=== PATIENT | male | born 1965 | race Caucasian/White ===

== ENCOUNTER 2022-11-11 22:16 | Emergency (ER) | payer OTHER, SELFPAY ==
[2022-11-11 22:17] VITALS: BP 155/91; PULSE 119; RESP 21; TEMP 37; O2SAT 94; BMI 31.0
[2022-11-11 22:40] LABS: Basophils % 0.4 % (0.1-2.0); Eosinophils # 0.1 K/mm3 (0.0-0.4); Eosinophils % 0.9 % (0.1-12.0); Hematocrit 54.8 % (42.0-52.0); Lymphocytes # 1.3 K/mm3 (0.7-4.5); Lymphocytes % 13.1 % (10-50); Mean Corpuscular HGB Conc 32.8 g/dL (31.8-35.4); Mean Corpuscular Hemoglobin 31.2 pg (27.0-31.2); Mean Corpuscular Volume 95.3 fl (80-94); Mean Platelet Volume 8.2 fl (7.4-10.4); Monocytes # 0.7 K/mm3 (0.1-1.0); Monocytes % 6.9 % (1.7-9.3); Neutrophils # 7.6 K/mm3 (1.8-7.8); Neutrophils % 78.7 % (37.0-80.0); Platelet Count 240 K/mm3 (142-424); Red Blood Count 5.75 M/mm3 (4.60-6.20); Red Cell Distribution Width 14.7 % (11.5-17.5); White Blood Count 9.7 K/mm3 (4.8-10.8)
[2022-11-11 22:48] LABS: Alanine Aminotransferase 67 U/L (12-78); Albumin Level 4.8 g/dl (3.5-5.0); Albumin/Globulin Ratio 1.3 (1.1-1.8); Alkaline Phosphatase 68 U/L (38-126); Anion Gap 15.2 mEq/L (5-15); Aspartate Amino Transferase 94 U/L (17-59); Bilirubin,Total 0.8 mg/dl (0.2-1.3); Blood Urea Nitrogen 32 mg/dl (9-20); Calcium 9.1 mg/dl (8.4-10.2); Carbon Dioxide 20 mmol/L (22.0-30.0); Chloride 103 mmol/L (98-107); Estimated Glomerular Filt Rate 62 ml/min (>60); GFR (African American) 75 ML/MIN (>60); Globulin 3.7 g/dL (1.3-3.2); Glucose 220 mg/dl (74-100); Lipase 140 U/L (23-300); Potassium 4.2 mmoL/L (3.5-5.1); Sodium 134 mmol/L (136-145); Total Protein,Serum 8.5 g/dl (6.3-8.2)
[2022-11-11 22:53] LABS: POC Glucose,Bedside 204 (70-110)
--- NOTE | 2022-11-11 22:59 | HMH.EDNVD ---
Discharge Plan Disposition Patient Disposition: Home, Self-Care Prescriptions Prescriptions: New ondansetron 8 mg Tablet,Disintegrating 8 mg PO QID PRN (Reason: Nausea And Vomiting) Qty: 16 0RF Referrals Follow up/Referrals: Provider,Referral, MD [Primary Care Provider] - See instructions Activity Restrictions/Add. Instructions Additional Instructions/Restrictions: Stick to a clear liquid diet for the next day or 2. Advance your diet slowly. Return to the emergency department immediately if you feel worse in any way. Follow-up with your primary care doctor in about 3 days if you do not see any improvement. Clinical Impressions Clinical Impression: Gastroenteritis Instructions Patient Instructions: DI for Diarrhea and Traveler's Diarrhea -- Adult, DI for Nausea -- Adult Discharge ED Provider: Rosa Farias Nausea/Vomiting/Diarrhea HPI General Chief complaint: Nausea/Vomiting/Diarrhea Stated complaint: SOA,Cough,Diarreha,Vomitting Time Seen by Provider: 11/11/22 22:59 Mode of Arrival: Family Vehicle History of Present Illness HPI Narrative: The patient presents to the emergency department complaining of nausea vomiting diarrhea and body aches and chills. He also complains of a cough. This all began this morning. The patient has a history of diabetes type 1 as well as HIV. He does take his antiretroviral medication as prescribed. He states that his last CD4 count was around 400. Related Data Previous Rx's Medication Instructions Recorded ondansetron 8 mg disintegrating 8 mg PO QID PRN Nausea And 11/11/22 tablet Vomiting #16 tabs Allergies Allergy/AdvReac Type Severity Reaction Status Date / Time No Known Allergies Allergy Verified 11/11/22 22:35 [facility] Disclaimer: The information contained in this section may have been updated after the patient was seen, as this information can be updated by other users. Social History Smoking Status: Never smoker alcohol intake: former current occupational status: employed Travel in the last 8 weeks: None ROS Obtained: Yes All systems reviewed & no additional complaints except as documented Physical Exam General General appearance: alert Head Head exam: atraumatic Eye Eye exam: Present normal appearance ENT ENT exam: Present normal exam Neck Neck exam: Present normal inspection and full ROM; Absent tenderness or meningismus Chest Chest inspection: Present normal inspection and symmetric chest wall rise; Absent tenderness Respiratory Respiratory exam: Present normal lung sounds bilaterally; Absent respiratory distress or accessory muscle use Cardiovascular Cardiovascular exam: Present regular rate, normal rhythm, tachycardia and normal heart sounds Abdominal Exam Abdominal exam: Present soft and normal bowel sounds; Absent distention, tenderness, guarding, rebound, heel tap sign, Vazquez's sign, Rovsing's sign, tenderness at McBurney's Point or mass Extremities Exam Extremities exam: Present normal inspection and full ROM; Absent calf tenderness Back Exam Back exam: Present normal inspection; Absent CVA tenderness (R) or CVA tenderness (L) Neurological Exam Neurological exam: Present alert and oriented X3 Psychiatric Psychiatric exam: Present normal affect and normal mood Skin Skin exam: Present warm, dry, intact and normal color Medical Decision Making Darwin Inquiry Pt receiving controlled substance: No Vital Signs: 11/11/22 22:17 11/11/22 23:30 11/12/22 00:00 Temperature 98.6 F Temperature Source Oral Pulse Rate 103 H 106 H Pulse Rate [Right] 119 H Respiratory Rate 21 Blood Pressure [Right Arm] 155/91 H Blood Pressure Mean [Right Arm] 112 Blood Pressure Source [Right Arm] Automatic Cuff 02 Sat by Pulse Oximetry 94 L 97 96 Oxygen Delivery Method Room Air Room Air Room Air 11/12/22 00:30 Temperature Temperature Source Pulse Rate 109 H Pulse Rate [Right] Respiratory Rate Blood Pressure [R
[2022-11-11 23:30] VITALS: PULSE 103; O2SAT 97
[2022-11-12] VITALS: PULSE 106; O2SAT 96
[2022-11-12 00:30] VITALS: PULSE 109; O2SAT 94
[2022-11-12 00:41] LABS: Coronavirus 19, PCR Not Detected (NotDetected); Influenza A, PCR Not Detected (NotDetected); Influenza B, PCR Not Detected (NotDetected)
[2022-11-12 01:00] VITALS: PULSE 113; O2SAT 95
[2022-11-12 01:15] VITALS: PULSE 114; O2SAT 96
[2022-11-12 01:17] VITALS: BP 134/71; PULSE 91; RESP 16; TEMP 37; O2SAT 98
== END 2022-11-12 01:19 | disposition home or self-care (01) ==
PROVIDERS: Emergency Provider Emergency Medicine
DX: K52.9 Noninfective gastroenteritis and colitis, unspecified (principal)
CPT/HCPCS: 80053; 82962; 83690; 85025; 96360; 96374; 99284; 99285; C9803; J2405; U0003; U0005

== ENCOUNTER → 2023-06-06 11:24 | Outpatient (CLI) | payer OTHER, SELFPAY ==
[2023-06-06 12:04] LABS: Basophils % 0.7 % (0.1-2.0); Eosinophils # 0.1 K/mm3 (0.0-0.4); Eosinophils % 1.7 % (0.1-12.0); Hematocrit 46.9 % (42.0-52.0); Hemoglobin 16.2 g/dL (14.1-18.0); Lymphocytes # 2.1 K/mm3 (0.7-4.5); Mean Corpuscular HGB Conc 34.6 g/dL (31.8-35.4); Mean Corpuscular Hemoglobin 32.8 pg (27.0-31.2); Mean Corpuscular Volume 94.9 fl (80-94); Mean Platelet Volume 8.4 fl (7.4-10.4); Monocytes # 0.5 K/mm3 (0.1-1.0); Monocytes % 9.8 % (1.7-9.3); Neutrophils # 2.3 K/mm3 (1.8-7.8); Neutrophils % 45.8 % (37.0-80.0); Platelet Count 152 K/mm3 (142-424); Red Blood Count 4.94 M/mm3 (4.60-6.20); Red Cell Distribution Width 14.5 % (11.5-17.5); White Blood Count 4.9 K/mm3 (4.8-10.8)
[2023-06-06 12:41] LABS: Chloride 104 mmol/L (98-107); Sodium 142 mmol/L (136-145)
[2023-06-06 12:42] LABS: Potassium 4.7 mmoL/L (3.5-5.1)
[2023-06-06 12:44] LABS: Alanine Aminotransferase 37 U/L (12-78); Aspartate Amino Transferase 38 U/L (17-59); Blood Urea Nitrogen 21 mg/dl (9-20); Estimated Glomerular Filt Rate 62 ml/min (>60); GFR (African American) 75 ML/MIN (>60)
[2023-06-06 12:45] LABS: Albumin Level 4.1 g/dl (3.5-5.0); Albumin/Globulin Ratio 1.6 (1.1-1.8); Alkaline Phosphatase 59 U/L (38-126); Anion Gap 10.7 mEq/L (5-15); Bilirubin,Total 0.4 mg/dl (0.2-1.3); Carbon Dioxide 32 mmol/L (22.0-30.0); Globulin 2.6 g/dL (1.3-3.2); Glucose 132 mg/dl (74-100); Total Protein,Serum 6.7 g/dl (6.3-8.2)
[2023-06-08 02:38] LABS: HIV 1 RNA, Real time PCR <20 copies/mL (.)
== END ==
PROVIDERS: PCP Nurse Practitioner Family; Visit Provider Nurse Practitioner Family
DX: B20 Human immunodeficiency virus [HIV] disease (principal)
CPT/HCPCS: 36415; 80053; 85025; 87536

== ENCOUNTER → 2023-06-14 11:09 | Outpatient (CLI) | payer OTHER, SELFPAY ==
[2023-06-14 11:47] LABS: Basophils % 0.7 % (0.1-2.0); Eosinophils # 0.1 K/mm3 (0.0-0.4); Eosinophils % 1.3 % (0.1-12.0); Hematocrit 46.8 % (42.0-52.0); Hemoglobin 16.1 g/dL (14.1-18.0); Lymphocytes # 1.7 K/mm3 (0.7-4.5); Lymphocytes % 36.8 % (10-50); Mean Corpuscular HGB Conc 34.3 g/dL (31.8-35.4); Mean Corpuscular Hemoglobin 32.8 pg (27.0-31.2); Mean Corpuscular Volume 95.4 fl (80-94); Mean Platelet Volume 8.2 fl (7.4-10.4); Monocytes # 0.3 K/mm3 (0.1-1.0); Monocytes % 6.5 % (1.7-9.3); Neutrophils # 2.6 K/mm3 (1.8-7.8); Neutrophils % 54.6 % (37.0-80.0); Platelet Count 158 K/mm3 (142-424); Red Cell Distribution Width 14.3 % (11.5-17.5); White Blood Count 4.7 K/mm3 (4.8-10.8)
[2023-06-14 12:04] LABS: Hemoglobin A1C 9.1 % (4.0-6.0)
[2023-06-14 12:13] LABS: Alanine Aminotransferase 32 U/L (12-78); Albumin/Globulin Ratio 1.4 (1.1-1.8); Alkaline Phosphatase 54 U/L (38-126); Anion Gap 12.6 mEq/L (5-15); Aspartate Amino Transferase 33 U/L (17-59); Bilirubin,Total 0.4 mg/dl (0.2-1.3); Blood Urea Nitrogen 20 mg/dl (9-20); Calcium 9.1 mg/dl (8.4-10.2); Carbon Dioxide 29 mmol/L (22.0-30.0); Chloride 104 mmol/L (98-107); Chol/HDL Ratio 4.8 (1-3.5); Cholesterol 134 mg/dl (140-200); Estimated Glomerular Filt Rate 68 ml/min (>60); GFR (African American) 83 ML/MIN (>60); Globulin 2.9 g/dL (1.3-3.2); Glucose 141 mg/dl (74-100); HDL Cholesterol 28 mg/dl (40-60); Potassium 4.6 mmoL/L (3.5-5.1); Sodium 141 mmol/L (136-145); Total Protein,Serum 6.9 g/dl (6.3-8.2); Triglycerides 214 mg/dl (30-150); VLDL Cholesterol 43 mg/dL (0-40)
== END ==
PROVIDERS: PCP Physician Assistant Medical; Visit Provider Physician Assistant Medical
DX: F31.9 Bipolar disorder, unspecified (principal); E11.22 Type 2 diabetes mellitus with diabetic chronic kidney disease; N18.2 Chronic kidney disease, stage 2 (mild); Z79.4 Long term (current) use of insulin; E78.5 Hyperlipidemia, unspecified
CPT/HCPCS: 36415; 80053; 80061; 80165; 83036; 85025

== ENCOUNTER → 2023-07-12 14:08 | Outpatient (CLI) | payer OTHER, SELFPAY | DX: Z79.899 Other long term (current) drug therapy (principal) ==

== ENCOUNTER → 2023-07-20 14:37 | Outpatient (CLI) | payer OTHER, SELFPAY | LOC: LAB 14:37 | DX: Z79.899 Other long term (current) drug therapy (principal) ==

== ENCOUNTER 2024-07-26 13:44 | Emergency (ER) | payer OTHER, SELFPAY ==
[2024-07-26] VITALS (7 sets, daily range): BP systolic 164–187; BP diastolic 93–123; PULSE 74–85; RESP 20; TEMP 37–37.1; O2SAT 92–98; BMI 29.4
--- NOTE | 2024-07-26 13:55 | PC.NURSE ---
PT O2 SAT 92-94% ON ROOM AIR. PLACED ON 2L/NC
--- NOTE | 2024-07-26 14:02 | ECG_ITS ---
APPROVED REPORT Exam: Resting ECG HR:78 bpm ECG Measurements Heart Rate 78 AXES IA 165 P 40 QRSd 102 QRS -52 QT 372 T 53 QTc 406 Conclusion SINUS RHYTHM INCOMPLETE RIGHT BUNDLE BRANCH BLOCK [90+ ms QRS DURATION, TERMINAL R IN V1/V2, 40+ ms S IN I/aVL/V4/V5/V6] LEFT ANTERIOR FASCICULAR BLOCK [QRS AXIS <= -45, QR IN I, RS IN II] POSSIBLE ANTERIOR MYOCARDIAL INFARCTION , OF INDETERMINATE AGE [30 ms Q WAVE IN V3/V4, OR R < 0.2 mV IN V4] ABNORMAL ECG Electronically signed by : AMITA LORA, 07/29/2024 07:05:20
--- NOTE | 2024-07-26 14:12 | XR_ITS ---
PROCEDURE INFORMATION: Exam: XR Chest Exam date and time: 07/26/2024 2:08 PM Age: 59 years old Clinical indication: Shortness of breath; Additional info: SOA TECHNIQUE: Imaging protocol: Radiologic exam of the chest. Views: 2 views. PA and Lateral COMPARISON: No relevant prior studies available. FINDINGS: Tubes, catheters and devices: None. Lungs: The lungs appear clear without pulmonary venous congestion. Pleural spaces: No pleural effusion. No pneumothorax. Heart/Mediastinum: Mediastinum and miguel appear unremarkable. Bones/joints: Mild to moderate generalized bony degenerative changes. Bony structures appear otherwise unremarkable. IMPRESSION: No evidence for acute abnormality identified in the chest.
--- NOTE | 2024-07-26 14:17 | ED_ITS ---
Discharge Plan Disposition Patient Disposition: Home, Self-Care Condition: Good Prescriptions Prescriptions: No Action ondansetron 8 mg Tablet,Disintegrating 8 mg PO QID PRN (Reason: Nausea And Vomiting) Qty: 16 0RF Referrals Follow up/Referrals: Provider,Referral, MD [Primary Care Provider] - See instructions Activity Restrictions/Add. Instructions Additional Instructions/Restrictions: Start antibiotic today. Be sure to complete entire prescription even if feeling better Tylenol and ibuprofen as needed for pain or fever Humidifier/vaporizer/hot steamy shower Follow-up with primary care this week Follow-up immediately in the ER of the [facility] for new or worsening symptoms or no noticeable improvement over the next 48-72 hours. Stop smoking Start steroids tomorrow. Helps with inflammation therefore coughing and wheezing. Follow directions on package. Clinical Impressions Clinical Impression: Laryngitis Pneumonia Qualifiers: Pneumonia type: due to unspecified organism Laterality: right Lung location: u pper lobe of lung Qualified Code(s): J18.9 - Pneumonia, unspecified organism Instructions Patient Instructions: Pneumonia--Adult, DI for Laryngitis Print Language Print Language: Chinese Discharge ED Provider: Bola Hankins General Adult HPI <Brian Silva ([facility]), [employer] ASSIST[employer] - Last Filed: 07/26/24 15:47> General Chief complaint: Shortness of Breath/Dyspnea Stated complaint: SOA, dizziness Time Seen by Provider: 07/26/24 14:12 History of Present Illness HPI narrative: 59-year-old male presents for complaints of shortness of breath and hoarseness for 10 days that worsened today. Patient states he saw his primary care doctor on Sunday and was not given any medicine was told it was probably viral. Patient states today he was walking around and became very short of breath and stopped breathing states that he could not catch his breath. Related Data Previous Rx's ?Medication ?Instructions ?Recorded ondansetron 8 mg disintegrating 8 mg PO QID PRN Nausea And 11/11/22 tablet Vomiting #16 tabs Allergies Allergy/AdvReac Type Severity Reaction Status Date / Time No Known Allergies Allergy Verified 11/11/22 22:35 [facility] <Brian Silva ([facility]), [employer] ASSISTANT - Last Filed: 07/26/24 15:47> [facility] Disclaimer: The information contained in this section may have been updated after the patient was seen, as this information can be updated by other users. Social History , [employer] ASSISTANT) Smoking Status: Never smoker alcohol intake: former current occupational status: employed Travel in the last 8 weeks: None Have you lived/traveled outside [place] in past 30 days?: No Contact w/someone who lives/traveled outside US past 30 days?: No Exposure to someone with infectious disease in past 14 days?: No Do you have a fever (greater than 100.4 F or 38 C)?: No Have you tested positive for COVID-19: No Exposed to someone with COVID-19 in past 14 days?: No Do you have a sore throat?: No Do you have a cough?: No Do you have any weakness?: No Do you have any diarrhea?: No Are you experiencing any unusual bleeding?: No Do you have any muscle aches/pain?: No Do you have any abdominal pain?: No Are you experiencing loss of taste or smell?: No <Brian Silva ([facility]), [employer] ASSISTANT - Last Filed: 07/26/24 15:47> ROS Obtained: Yes Systems reviewed as appropriate & no additional complaints except as documented Physical Exam <[facility] De[facility]on[facility] [employer] ASSISTANT - Last Filed: 07/26/24 15:47> General General appearance: alert and in no apparent distress ENT ENT exam: Present mucous membranes moist Expanded ENT Exam Throat exam: Present tonsillar erythema, tonsillomegaly and tonsillar exudate Respiratory Respiratory exam: Present other Expanded Respiratory Exam Location: Left: decreased breath sounds, Right: decreased breath sounds and Lower: decreased breath sounds Cardiovascular Cardiovascular exam: Present regular rate and normal rhythm Neurological Exam Neurological exam: Present alert and oriented X3 Skin Skin exam: Present warm and intact Medical Decision Making <[facility]on[facility] [employer] ASSISTANT - Last Filed: 07/26/24 15:47> Medical Records Medical records reviewed: Yes I reviewed the patient's medical records. Screening: Per USPSTF and CDC recommendations, given the prevalence of disease in our region, it is our hospital?s policy to screen for HIV and viral Hepatitis for all patients aged 18 and over and those with ongoing risk factors. Darwin Inquiry Pt receiving controlled substance: No Vital Signs: 07/26/24 13:45 07/26/24 15:04 07/26/24 15:15 Temperature 98.7 F Temperature Source Oral Pulse Rate 78 74 Pulse Rate [Apical] 79 Respiratory Rate 20 Blood Pressure Blood Pressure [Right Arm] 164/93 H Blood Pressure Mean [Right Arm] 116 Blood Pressure Source [Right Arm] Automatic Cuff Blood Pressure Position [Right Arm] Sitting 02 Sat by Pulse Oximetry 92 L 97 98 Oxygen Delivery Method Room Air 07/26/24 15:30 07/26/24 15:36 07/26/24 15:41 Temperature Temperature Source Pulse Rate 74 85 75 Pulse Rate [Apical] Respiratory Rate Blood Pressure 187/123 H 176/101 H Blood Pressure [Right Arm] Blood Pressure Mean [Right Arm] Blood Pressure Source [Right Arm] Blood Pressure Position [Right Arm] 02 Sat by Pulse Oximetry 95 98 96 Oxygen Delivery Method Lab Data Lab results reviewed: Yes I reviewed the patient's lab results. Lab Results 07/26/24 13:55: WBC 6.2, RBC 4.72, Hgb 15.0, Hct 45.0, MCV 95.3 H, MCH 31.8 H, MCHC 33.3, RDW 13.8, Plt Count 219, MPV 9.9, Neut % (Auto) 54.1, Lymph % (Auto) 31.3, [place] % (Auto) 11.3 H, Eos % (Auto) 2.4, Baso % (Auto) 0.6, Neut # (Auto) 3.3, Lymph # (Auto) 1.9, [place] # (Auto) 0.7, Eos # (Auto) 0.2, Baso # (Auto) 0.0, Sodium 138, Potassium 4.5, Chloride 102, Carbon Dioxide 32 H, Anion Gap 8.5, BUN 18, Creatinine 1.20, Estimated GFR 62, Est GFR ( Amer) 74, Glucose 152 H, Lactate 1.4, Calcium 9.0, Total Bilirubin 0.5, AST 74 H, ALT 45, Alkaline Phosphatase 77, Troponin I < 0.01, Total Protein 7.0, Albumin 3.9, Globulin 3.1, Albumin/Globulin Ratio 1.3 07/26/24 14:48: SARS-CoV-2 (PCR) Not detected, Influenza A Untype (PCR) Not detected, Influenza Type B (PCR) Not detected, Group A Strep Rapid Negative 07/26/24 13:55 07/26/24 13:55 Orders (Tests/Meds): ED MEDICATIONS Generic Name Dose Route Start Last Admin Trade Name Ynes PRN Reason Stop Dose Admin Doxycycline Hyclate 100 mg 07/26/24 21:00 07/26/24 15:31 Doxycycline Hycl 100 Mg Tablet PO 08/05/24 20:59 100 mg BID LAYLA Administration Discontinued Medications Generic Name Dose Route Start Last Admin Trade Name Ynes PRN Reason Stop Dose Admin Methylprednisolone Sodium Succinate 125 mg 07/26/24 15:21 07/26/24 15:31 Methylprednisolone Sod Succ 125mg Vial IV 07/26/24 15:22 125 mg ONCE ONE Administration ORDERS Category Date Time Status Chest XR 2 view (NOT portable) [XR chest 2V] Stat Exams 07/26/24 14:12 Completed CBC [Complete Blood Count Auto Diff] Stat Lab 07/26/24 13:55 Completed CMP [Comprehensive Metabolic Panel] Stat Lab 07/26/24 13:55 Completed HIV Combo Stat Lab 07/26/24 13:55 Received Hep C Ab with Reflex to RNA Stat Lab 07/26/24 13:55 Received Lactic Acid Stat Lab 07/26/24 13:55 Completed Rapid PCR Covid and Flu A/B Stat Lab 07/26/24 14:48 Completed Rapid Strep Scrn Group A [Strep Scrn Group A (Rapid)] Lab 07/26/24 14:48 Completed Stat Trop I [Troponin I] Stat Lab 07/26/24 13:55 Completed Troponin I Q3H Lab 07/26/24 17:30 Ordered Troponin I Q3H Lab 07/26/24 20:30 Ordered Strep Screen Confirmation Stat Micro 07/26/24 14:48 Received Medical Decision Narrative: In summary patient is a 59-year-old male who presents to the emergency department for evaluation of coughing, shortness of breath and hoarseness for 10 days. Patient states that he saw his primary care doctor on Sunday and was diagnosed with acute bronchitis and was not given any medications. Patient is hemodynamically stable upon arrival, afebrile. Diminished breath sounds, redness to the pharynx. Differential diagnosis includes COVID, flu, acute bronchitis,. Initial workup will be conducted with labs, x-ray, COVID, flu and strep swab. Initial inventions include IV steroids and p.o. antibiotics with O2 at 2 L which was weaned off and patient tolerated well. Initial workup reviewed by me chest x-ray shows a pneumonia. Upon repeat evaluation patient was able to tolerate room air and p.o intake. Given this patient is appropriate for discharge at this time will discharge home with prescription of doxycycline twice a day for 10 days and prednisone 40 mg x 40 days I informally interpreted patient's chest x-ray positive for pneumonia Documented with school lunch monitor normal sinus <Srini Davenport MD - Last Filed: 07/26/24 15:49> Vital Signs: 07/26/24 13:45 07/26/24 15:04 07/26/24 15:15 Temperature 98.7 F Temperature Source Oral Pulse Rate 78 74 Pulse Rate [Apical] 79 Respiratory Rate 20 Blood Pressure Blood Pressure [Right Arm] 164/93 H Blood Pressure Mean [Right Arm] 116 Blood Pressure Source [Right Arm] Automatic Cuff Blood Pressure Position [Right Arm] Sitting 02 Sat by Pulse Oximetry 92 L 97 98 Oxygen Delivery Method Room Air 07/26/24 15:30 07/26/24 15:36 07/26/24 15:41 Temperature Temperature Source Pulse Rate 74 85 75 Pulse Rate [Apical] Respiratory Rate Blood Pressure 187/123 H 176/101 H Blood Pressure [Right Arm] Blood Pressure Mean [Right Arm] Blood Pressure Source [Right Arm] Blood Pressure Position [Right Arm] 02 Sat by Pulse Oximetry 95 98 96 Oxygen Delivery Method Lab Data Lab Results 07/26/24 13:55: WBC 6.2, RBC 4.72, Hgb 15.0, Hct 45.0, MCV 95.3 H, MCH 31.8 H, MCHC 33.3, RDW 13.8, Plt Count 219, MPV 9.9, Neut % (Auto) 54.1, Lymph % (Auto) 31.3, [place] % (Auto) 11.3 H, Eos % (Auto) 2.4, Baso % (Auto) 0.6, Neut # (Auto) 3.3, Lymph # (Auto) 1.9, [place] # (Auto) 0.7, Eos # (Auto) 0.2, Baso # (Auto) 0.0, Sodium 138, Potassium 4.5, Chloride 102, Carbon Dioxide 32 H, Anion Gap 8.5, BUN 18, Creatinine 1.20, Estimated GFR 62, Est GFR ( Amer) 74, Glucose 152 H, Lactate 1.4, Calcium 9.0, Total Bilirubin 0.5, AST 74 H, ALT 45, Alkaline Phosphatase 77, Troponin I < 0.01, Total Protein 7.0, Albumin 3.9, Globulin 3.1, Albumin/Globulin Ratio 1.3 07/26/24 14:48: SARS-CoV-2 (PCR) Not detected, Influenza A Untype (PCR) Not detected, Influenza Type B (PCR) Not detected, Group A Strep Rapid Negative Orders (Tests/Meds): ED MEDICATIONS Generic Name Dose Route Start Last Admin Trade Name Freq PRN Reason Stop Dose Admin Doxycycline Hyclate 100 mg 07/26/24 21:00 07/26/24 15:31 Doxycycline Hycl 100 Mg Tablet PO 08/05/24 20:59 100 mg BID LAYLA Administration Discontinued Medications Generic Name Dose Route Start Last Admin Trade Name Freq PRN Reason Stop Dose Admin Methylprednisolone Sodium Succinate 125 mg 07/26/24 15:21 07/26/24 15:31 Methylprednisolone Sod Succ 125mg Vial IV 07/26/24 15:22 125 mg ONCE ONE Administration ORDERS Category Date Time Status Chest XR 2 view (NOT portable) [XR chest 2V] Stat Exams 07/26/24 14:12 Completed CBC [Complete Blood Count Auto Diff] Stat Lab 07/26/24 13:55 Completed CMP [Comprehensive Metabolic Panel] Stat Lab 07/26/24 13:55 Completed HIV Combo Stat Lab 07/26/24 13:55 Received Hep C Ab with Reflex to RNA Stat Lab 07/26/24 13:55 Received Lactic Acid Stat Lab 07/26/24 13:55 Completed Rapid PCR Covid and Flu A/B Stat Lab 07/26/24 14:48 Completed Rapid Strep Scrn Group A [Strep Scrn Group A (Rapid)] Lab 07/26/24 14:48 Completed Stat Trop I [Troponin I] Stat Lab 07/26/24 13:55 Completed Troponin I Q3H Lab 07/26/24 17:30 Ordered Troponin I Q3H Lab 07/26/24 20:30 Ordered Strep Screen Confirmation Stat Micro 07/26/24 14:48 Received ECG Data Tracing #1: Independently interpreted by me rate 78, rhythm is regular, axis is leftward deviated, no ST elevation in anatomical contiguous leads, QTc 406. Medical Decision Narrative: In summary patient is a 59-year-old male who presents to the emergency department for evaluation of coughing, shortness of breath and hoarseness for 10 days. Patient states that he saw his primary care doctor on Sunday and was diagnosed with acute bronchitis and was not given any medications. Patient is hemodynamically stable upon arrival, afebrile. Diminished breath sounds, redness to the pharynx. Differential diagnosis includes COVID, flu, acute bronchitis,. Initial workup will be conducted with labs, x-ray, COVID, flu and strep swab. Initial inventions include IV steroids and p.o. antibiotics with O2 at 2 L which was weaned off and patient tolerated well. Initial workup reviewed by me chest x-ray shows a pneumonia. Upon repeat evaluation patient was able to tolerate room air and p.o intake. Given this patient is appropriate for discharge at this time will discharge home with prescription of doxycycline twice a day for 10 days and prednisone 40 mg x 40 days I informally interpreted patient's chest x-ray positive for pneumonia Independently interpreted school lunch monitor normal sinus 3:48 PM. I was consulted by the MANJEET, and we discussed the complexity of the problems being addressed. I approved the treatment and management plan for this patient's care in the emergency department, thus performing a substantive portion of the medical decision making. Patient clinically has laryngitis being treated with steroids, has pneumonia being treated with doxycycline was given return precautions. Srini Davenport MD Critical Care <Brian Silva ([facility]), [employer] ASSISTANT - Last Filed: 07/26/24 15:47> Critical Care Time Critical Care Time: No
--- NOTE | 2024-07-26 14:18 | PC.NURSE ---
PT TO XR
[2024-07-26 14:25] LABS: Albumin Level 3.9 g/dl (3.5-5.0); Chloride 102 mmol/L (98-107); Potassium 4.5 mmoL/L (3.5-5.1); Sodium 138 mmol/L (136-145)
[2024-07-26 14:28] LABS: Alanine Aminotransferase 45 U/L (12-78); Albumin/Globulin Ratio 1.3 (1.1-1.8); Alkaline Phosphatase 77 U/L (38-126); Anion Gap 8.5 mEq/L (5-15); Aspartate Amino Transferase 74 U/L (17-59); Basophils % 0.6 % (0.1-2.0); Bilirubin,Total 0.5 mg/dl (0.2-1.3); Blood Urea Nitrogen 18 mg/dl (9-20); Carbon Dioxide 32 mmol/L (22.0-30.0); Eosinophils # 0.2 K/mm3 (0.0-0.4); Eosinophils % 2.4 % (0.1-12.0); Estimated Glomerular Filt Rate 62 ml/min (>60); GFR (African American) 74 ML/MIN (>60); Globulin 3.1 g/dL (1.3-3.2); Glucose 152 mg/dl (74-100); Lymphocytes # 1.9 K/mm3 (0.7-4.5); Lymphocytes % 31.3 % (10-50); Mean Corpuscular HGB Conc 33.3 g/dL (31.8-35.4); Mean Corpuscular Hemoglobin 31.8 pg (27.0-31.2); Mean Corpuscular Volume 95.3 fl (80-94); Mean Platelet Volume 9.9 fl (7.4-10.4); Monocytes # 0.7 K/mm3 (0.1-1.0); Monocytes % 11.3 % (1.7-9.3); Neutrophils # 3.3 K/mm3 (1.8-7.8); Neutrophils % 54.1 % (37.0-80.0); Platelet Count 219 K/mm3 (142-424); Red Blood Count 4.72 M/mm3 (4.60-6.20); Red Cell Distribution Width 13.8 % (11.5-17.5); White Blood Count 6.2 K/mm3 (4.8-10.8)
[2024-07-26 14:29] LABS: Lactic Acid 1.4 mmol/L (0.7-2.1)
[2024-07-26 14:42] LABS: Troponin I < 0.01 ng/ml (0.00-0.034)
[2024-07-26 14:54] LABS: Coronavirus 19, PCR Not Detected (NotDetected); Influenza A, PCR Not Detected (NotDetected); Influenza B, PCR Not Detected (NotDetected)
[2024-07-26 15:08] LABS: Strep Scrn Group A (Rapid) Negative (Negative)
[2024-07-26] MEDS: METHYLPREDNISOLONE SOD SUCC 125MG VIAL 125 MG IV (15:31)
[2024-07-26] MEDS: DOXYCYCLINE HYCL 100 MG TABLET PO (15:31)
[2024-07-26 16:03] LABS: HIV Combo POSITIVE (Negative)
[2024-07-26 16:58] LABS: HIV Combo Retest POSITIVE (Negative)
[2024-07-28 13:08] LABS: HCV Ab Non Reactive (Non Reactive)
[2024-07-29 16:03] LABS: HIV 1 Ab Reactive (Non Reactive); HIV 2 Ab Non Reactive (Non Reactive); HIV Screen 4th Generation wRfx Preliminary Reactive (Non Reactive); HIV-1 Ab CHG YES; HIV-2 Ab CHG YES; Interpretation: HIV-1 Positive (.)
== END 2024-07-26 16:07 | disposition home or self-care (01) ==
PROVIDERS: Emergency Medicine; Nurse Practitioner Family; Emergency Provider Emergency Medicine
DX: J18.9 Pneumonia, unspecified organism (principal); J04.0 Acute laryngitis; R06.02 Shortness of breath; R49.0 Dysphonia; R05.9 Cough, unspecified
CPT/HCPCS: 71046; 80053; 83605; 84484; 85025; 86701; 86702; 86703; 86803; 87389; 87430; 87636; 93005; 96374; 99284; G0432; J2919